=== PATIENT | male | born 1960 | race African-American/Black ===

== ENCOUNTER 2023-06-05 08:27 | Outpatient (REF) | payer MEDICAID, SELFPAY ==
[2023-06-05 15:19] LABS: Alanine Aminotransferase 18 U/L (0-40); Albumin Level 4.1 g/dL (3.5-5.0); Alkaline Phosphatase 57 U/L (39-117); Aspartate Amino Transferase 23 U/L (5-37); Bilirubin Direct 0.2 mg/dL (0.0-0.5); Bilirubin Total 0.5 mg/dL (0.0-1.0); Total Protein 7.5 g/dL (6.5-8.0)
== END 2023-06-05 08:28 | disposition home or self-care (01) ==
LOC: HO.CHCLDS 08:27
PROVIDERS: Visit Provider Student in an Organized Health Care Education/Training Program
DX: Z00.00 Encounter for general adult medical examination without abnormal findings (principal)
CPT/HCPCS: 36415; 80076

== ENCOUNTER 2024-01-14 08:36 | Outpatient (REF) | payer MEDICAID, SELFPAY ==
[2024-01-14 14:42] LABS: MANUAL DIFF FLAG NO
[2024-01-14 15:03] LABS: Basophils Percent Auto 0.6 % (0-2); Eosinophils Absolute Auto 0.2 X10*3/uL (0.0-0.4); Eosinophils Percent Auto 3.5 % (0-4); Hematocrit 43.5 % (42.0-52.0); Hemoglobin 14.4 g/dl (14.0-18.0); Imm Gran Abs Auto 0.02 X10*3/uL (0.00-0.03); Imm Gran Pct Auto 0.4 % (0.0-0.4); Lymphocytes Absolute Auto 2.1 X10*3/uL (1.2-4.9); Lymphocytes Percent Auto 38.3 % (20-40); Mean Corpuscular HGB Conc 33.1 g/dl (31.0-36.0); Mean Corpuscular Hemoglobin 29.1 pg (27.0-33.0); Mean Corpuscular Volume 87.9 fL (80.0-98.0); Mean Platelet Volume 10.4 fL (9.4-12.4); Monocytes Absolute Auto 0.5 X10*3/uL (0.1-1.2); Monocytes Percent Auto 8.3 % (2-11); Neutrophils Absolute Auto 2.7 x10*3/uL (2.0-8.3); Neutrophils Percent Auto 48.9 % (45-73); Platelet Count 260 X10*3/uL (160-400); Red Blood Count 4.95 X10*6/uL (4.60-5.80); Red Cell Distribution Width 12.5 % (11.0-16.0); White Blood Count 5.5 X10*3/uL (4.8-10.8)
[2024-01-14 15:28] LABS: Alanine Aminotransferase 23 U/L (0-40); Albumin Level 4.1 g/dL (3.5-5.0); Alkaline Phosphatase 53 U/L (39-117); Anion Gap 12 (12-20); Aspartate Amino Transferase 23 U/L (5-37); Bilirubin Total 0.6 mg/dL (0.0-1.0); Blood Urea Nitrogen 15 mg/dL (9-16); Calcium 9.5 mg/dL (8.4-10.2); Carbon Dioxide 25 mmol/L (22-29); Chloride 105 mmol/L (96-108); Cholesterol 190 mg/dL (<200); Estimated Glomerular Filt Rate > 60; Glucose Random 88 mg/dL (60-115); HDL Cholesterol 41 mg/dL (>40); LDL Cholesterol Calculated 134 mg/dL (<100); Potassium 4.4 mmol/L (3.3-5.1); Sodium 138 mmol/L (135-145); Total Protein 7.5 g/dL (6.5-8.0); Triglycerides 79 mg/dL (<150)
[2024-01-14 15:34] LABS: TSH reflex Free T4 1.36 uIU/mL (0.32-4.0)
[2024-01-15 08:53] LABS: HIV AB/AG Nonreactive (Nonreactive); HIV Num 1 0.06 S/CO (0.00-0.99)
== END 2024-01-14 08:37 | disposition home or self-care (01) ==
LOC: HO.CHCLDS 08:36
PROVIDERS: Visit Provider Internal Medicine
DX: Z11.4 Encounter for screening for human immunodeficiency virus [HIV] (principal); R03.0 Elevated blood-pressure reading, without diagnosis of hypertension
CPT/HCPCS: 36415; 80053; 80061; 84443; 85025; 87389

== ENCOUNTER 2024-06-22 10:08 | Outpatient (REF) | payer MEDICAID, SELFPAY ==
[2024-06-22 16:10] LABS: Anion Gap 12 (12-20); Blood Urea Nitrogen 15 mg/dL (9-16); Carbon Dioxide 25 mmol/L (22-29); Chloride 104 mmol/L (96-108); Estimated Glomerular Filt Rate > 60; Glucose Random 99 mg/dL (60-115); Potassium 4.2 mmol/L (3.3-5.1); Sodium 137 mmol/L (135-145)
[2024-06-22 16:57] LABS: PSA,Total (Free>4and<10) 1.28 ng/mL (0.00-4.00)
[2024-06-23 03:55] LABS: ~HepC Num1 0.13 S/CO (0.00-0.79); ~Hepatitis C Antibody Nonreactive (Nonreactive)
== END 2024-06-22 10:09 | disposition home or self-care (01) ==
LOC: HO.CHCLDS 10:08
PROVIDERS: Visit Provider Internal Medicine
DX: N43.3 Hydrocele, unspecified (principal); R03.0 Elevated blood-pressure reading, without diagnosis of hypertension; I10 Essential (primary) hypertension
CPT/HCPCS: 36415; 80048; 84153; 86803

== ENCOUNTER 2025-03-09 08:43 | Outpatient (REF) | payer SELFPAY ==
--- OUTSIDE RECORDS SUMMARY | 2025-03-09 09:03 | XMS_ITS | Clinical Summary ---
Author Organization [employer] Address [address] [place] [address] Care Team Providers Care Cardiopulmonary Technologist Chief Name Role Phone Gary Colunga MD Primary Care Provider Allergies No known active allergies Medications losartan (Cozaar) 50 MG tabletIndicatio ns:Elevated blood pressure reading TAKE 1 TABLET (50 MG) BY MOUTH ONCE PER DAY. 90 tablet 5 Active losartan (Cozaar) 50 MG tabletIndicatio ns:Elevated blood pressure reading Take 1 tablet (50 mg) by mouth Once per day. 90 tablet 1 4 03/02/20 25 Discontinued Active Problems Problem Noted Date Diagnosed Date Primary hypertension 06/22/2024 Elevated blood pressure reading 06/07/2023 Assessment & Plan (06/07/2023 9:53 AM EDT): Dx with HTN. Will start on losartan 50 mg every day. Target BP < 140/90 mmHg Recommended to keep monitoring blood pressure at home. Advised to bring home readings on paper upon next office visit. 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 Encounters Date Type Department Care Team Description 02/28/2025 Refill [facility] [address] [place] [address] Gary Colunga MD Elevated blood pressure reading 02/18/2025 2:00 PM EDT Office Visit [facility] [address] [place] [address] Gary Colunga MD Annual physical exam (Primary Dx); Hydrocele of testis; Primary hypertension; Dietary counseling; Exercise counseling; Overweight 02/18/2025 Travel 02/11/2025 Patient Outreach [facility] [address] [place] [address] Gary Colunga MD Pre-visit Planning (Pre visit planning LVM ) from Last 3 Months Immunizations Immunization Administration Dates Next Due Influenza Injectable Quadriv alant Preservative Free IIV4 MDCK 04/23/2023,05/25/2022 Influenza injectable quadrivalent preservative f ree 06/14/2021 Influenza, Injectable, MDCK, preservative free 1 Pfizer Covid-19 Vaccine 12+ 06/22/2024 Pneumococcal Conjugate PCV 20 09/03/2024 Tdap 03/11/2024 Family History Medical History Relation Name Comments Heart attack Father Relation Name Status Comments Father Social History Tobacco Use Types Packs/Day Years Used Date Smoking Tobacco: Some Days Cigarettes Smokeless Tobacco: Never Tobacco Cessation:Ready to Q uit: Not Asked; Counseling Given: Not Answered Comments:Chew tobacco Alcohol Use Standard Drinks/Week Comments Yes 2 (1 standard drink = 0.6 oz pur e alcohol) once or twice a month : Alcohol Answer Date Recorded Q1: How often do you have a drink containing alc ohol? 2 06/22/2024 Q2: How many drinks containi ng alcohol do you have on a typical day when you are drinking? 1 06/22/2024 Q3: How often do you have six or more drinks on one occasion? 1 06/22/2024 Depression Answer Date Recorded Patient Health Questionnaire-9 Score 1 06/22/2024 Patient Health Questionnaire-9 Score 1 06/22/2024 Last PHQ-9: Questionnaire Data Not on file 1 08/22/2023 Housing Stability Answer Date Recorded What is your housing situation today? I have selene hammond 02/18/[address] you li ve. Do you have problems with any of the following? None of the above 02/18/2025 Food Insecurity Answer Date Recorded Within the past 12 months, y ou worried that your food would run out before you got money to buy more: Never True 06/05/2023 Within the past 12 months,th e food you bought just didn't last and you didn't have enough money to get more: Never True Transportation Answer Date Recorded In the past 12 months, has l ack of transportation kept you from medical appts, meetings, work or from getting things needed for daily living? No 06/05/2023 Utilities Answer Date Recorded In the past 12 months, has t he electric, gas, oil or water company threatened to shut off services in your home? No 06/05/2023 Depression Answer Date Recorded Patient Health Questionnaire-2 Score 0 06/22/2024 Internet Access Answer Date Recorded Internet Access Q1 No 02/18/2025 Internet Access Q2 I do not want or need it 10/2024 Sex and Gender Information Value Date Recorded Sex Assigned at Male 06/18/2022 10:33 AM EDT Legal Sex Male 10:33 AM EDT Gender Identity Male 06/18/2022 10:33 AM EDT Sexual Orientation Straight 06/18/2022 10 :33 AM EDT Last Filed Vital Signs Vital Sign Reading Time Taken Comments Blood Pressure 135/79 02/18/2025 2:03 PM EDT Pulse 84 02/18/2025 2:03 PM EDT Temperature 36.6 C (97.9 F) 02/18/2025 2:03 PM EDT Respiratory Rate 18 02/18/2025 2:03 PM EDT Oxygen Saturation 97% 02/18/2025 2:03 PM EDT Inhaled Oxygen Concentration - - Weight 77.1 kg (170 lb) 02/18/2025 2:03 PM EDT Height 168.3 cm (5' 6.25 ) 02/18/2025 2:03 PM ED T Body Mass Index 27.23 02/18/2025 2:03 PM EDT Plan of Treatment Health Maintenance Due Date Last Done Comments CT Colonography 1960 Colonoscopy 1960 FIT 1960 FOBT 1960 Sigmoidoscopy 1960 Zoster Vaccines (1 of 2) 01/17/2010 COVID-19 Vaccine ( season) 2025 06/22/2024, 12/13/2020, 11/15/2020 Influenza Vaccine (#1) 2025 , 04/23/2023, 05/25/2022, Additional history exists Alcohol/Substance Use Screening 06/22/2025 06/22/2024 Depression Screening 06/22/2025 06/22/2024, 06/22/20 SDOH Screening 02/18/2026 02/18/2025 Tobacco Screening 02/18/2026 02/18/2025 Colorectal Cancer Screening 05/21/2026 FIT DNA/Cologuard 05/21/2026 05/21/2023 Lipid Panel 01/13/2029 01/14/2024, 0811/2020, 04/12/2020 DTaP/Tdap/Td Vaccines (2 - Td or Tdap) 03/11/2034 03/11/2024 RSV Patients and Patients Aged 60 years or older (1 - 1-dose 75+ series) 01/17/2035 Hepatitis C Screening Completed 06/22/2024 Pneumococcal Vaccine: 50+ Years Completed 09/03/2024 HIB Vaccines Aged Out No longer eligi ble based on patient's age to complete this topic HPV Vaccines Aged Out No longer eligi ble based on patient's age to complete this topic Hepatitis A Vaccines Aged Out No long er eligible based on patient's age to complete this topic Hepatitis B Vaccines Aged Out No long er eligible based on patient's age to complete this topic IPV Vaccines Aged Out No longer eligi ble based on patient's age to complete this topic Meningococcal B Vaccine Aged Out No l onger eligible based on patient's age to complete this topic Meningococcal Vaccine Aged Out No gisel hawk eligible based on patient's age to complete this topic RSV under 20 months Aged Out No longe r eligible based on patient's age to complete this topic Rotavirus Vaccines Aged Out No longer eligible based on patient's age to complete this topic Procedures Procedure Name Priority Date/Time Associated Diagnosis Comments HEPATITIS C AB W/REFL TO HCV RNA, QN, PCR Routine 06/22/2024 10:10 AM EST Hydrocele of testis LIPID PANEL, STANDARD Routine 01/14/2024 8:37 AM EDT Elevated blood pressure reading LAB COLOGUARD COLON CANCER SCREEN Routine 05/21/2023 8:00 AM EDT Encounter for screening colonoscopy from Last 3 Months or Most Recently Relevant to Health Maintenance Results * Hepatitis C Antibody with Reflex to HCV, RNA, Quantitative, Real-Time PCR (06/22/2024 10:10 AM EST) Hepatitis C Antibody Nonreactive Nonreactive [facility] Comment:Antibodies to HCV no t detected; does not exclude early acuteHCV infection. Blood Venous blood specimen / Unknown 06/22/2024 10:10 AM EST 06/22/2024 2:39 PM EST us Gary Colunga MD LAB BLOOD ORDERABLES Final Result [facility] [address] [place] [phone] * (ABNORMAL) Lipid Panel, Standard (01/14/2024 8:37 AM EDT) Triglycerides 79 <150 mg/dL [facility] Comment:Desirable Triglyceri de: less than 150 mg/dLBorderline High Triglyceride 150-199 mg/dLHigh Triglyceride: 200-499 mg/dLVery High Triglyceride: greater than or equal to 5OO mg/dL Cholesterol 190 <200 mg/dL [facility] Comment:Desirable Cholestero l: less than 200 mg/dLBorderline High Cholesterol: 200-239 mg/dLHigh Cholesterol: greater than 239 mg/dL LDL Cholesterol Calculated 134(H) <100 mg/dL [facility] Comment:Desirable LDL: less than 100 mg/dLNear Optimal/Above Optimal LDL: 110- 129 mg/dLBorderline High LDL: 130-159 mg/dLHigh LDL: 160-189 mg/dLVery High LDL: greater than or equal to 190 mg/dL HDL Cholesterol 41 >40 mg/dL [facility] Comment:Desirable HDL: great er than 40 mg/dL Note: This HDL assay may give artificially low results in patients with liver disease. Blood Venous blood specimen / Unknown 01/14/2024 8:37 AM EDT 01/14/2024 2:37 PM EDT us Gary Colunga MD LAB BLOOD ORDERABLES Final Result [facility] [address] [place] [phone] * Cologuard?? colon cancer screening (05/21/2023 8:00 AM EDT) Cologuard Result Negative Negative 05/31/20 5:10 AM EDT [facility] (CLIA #:[id number]) Comment: NEGATIVE TEST RESULT. A negative Cologuard result indicates a low likelihood that a colorectal cancer (CRC) or advanced adenoma (adenomatous polyps with more advanced pre-malignant features) is present. The chance that a person with a negative Cologuard test has a colorectal cancer is less than 1 in 1500 (negative predictive value >99.9%) or has an advanced adenoma is less than 5.3% (negative predictive value 94.7%). These data are based on a prospective cross-sectional study of 10,000 individuals at average risk for colorectal cancer who were screened with both Cologuard and colonoscopy. (Lauraialtravis T. et al, N Engl J Med 2014;370(14):7048-0951) The normal value (reference range) for this assay is negative. COLOGUARD RE-SCREENING RECOMMENDATION: Periodic colorectal cancer screening is an important part of preventive healthcare for asymptomatic individuals at average risk for colorectal cancer. Following a negative Cologuard result, the [place] [employer] and U.S. Multi-Society Task Force screening guidelines recommend a Cologuard re-screening interval of 3 years. References: [place] [employer] Guideline for Colorectal Cancer Screening: https://www.cancer.org/cancer/aaxrd-zwmlej-lajpdn/jgelxunra-sphevanjv-saaplfq/ac s-rec ommendations.html.; Magnus WILLS, Christiano DUNNE, Yee YADAV, Colorectal Cancer Screening: Recommendations for Physicians and Patients from the U.S. Multi-Society Task Force on Colorectal Cancer Screening , Am J Gastroenterology 2017; 112:2190-8737. TEST DESCRIPTION: Composite algorithmic analysis of stool DNA-biomarkers with hemoglobin immunoassay. Quantitative values of individual biomarkers are not reportable and are not associated with individual biomarker result reference ranges. Cologuard is intended for colorectal cancer screening of adults of either sex, 45 years or older, who are at average-risk for colorectal cancer (CRC). Cologuard has been approved for use by the U.S. FDA. The performance of Cologuard was established in a cross sectional study of average-risk adults aged 50-84. Cologuard performance in patients ages 45 to 49 years was estimated by sub-group analysis of near-age groups. Colonoscopies performed for a positive result may find as the most clinically significant lesion: colorectal cancer [4.0%], advanced adenoma (including sessile serrated polyps greater than or equal to 1cm diameter) [20%] or non- advanced adenoma [31%]; or no colorectal neoplasia [45%]. These estimates are derived from a prospective cross-sectional screening study of 10,000 individuals at average risk for colorectal cancer who were screened with both Cologuard and colonoscopy. (Everton Koo. et al, N Engl J Med 2014;370(14):9778-9534.) Cologuard may produce a false negative or false positive result (no colorectal cancer or precancerous polyp present at colonoscopy follow up). A negative Cologuard test result does not guarantee the absence of CRC or advanced adenoma (pre-cancer). The current Cologuard screening interval is every 3 years. ([place] [employer] and U.S. Multi-Society Task Force). Cologuard performance data in a 10,000 patient pivotal study using colonoscopy as the reference method can be accessed at the following location: www.[facility]/results. Additional description of the Cologuard test process, warnings and precautions can be found at www.[facility].com. Stool specimen (specimen) 05/21/2023 8:00 AM EDT 05/24/2023 3:55 PM EDT us Gary Colunga MD LAB MOLECULAR DIAGNOSTICS O RDERABLES Final Result [facility] (CLIA #:[id number]) [address] [place] [place] [address], from Last 3 Months or Most Recently Relevant to Health Maintenance Insurance [facility] [address] [place] [phone] Care Teams Cardiopulmonary Technologist Chief Relationship Specialty Start Date End Date Gary Colunga MD [address] [place] [phone] PCP - General Internal Medicine 12/24/17
== END 2025-03-09 08:44 | disposition home or self-care (01) ==
LOC: CF 08:43
PROVIDERS: PCP Internal Medicine; Visit Provider Internal Medicine
DX: Z13.89 Encounter for screening for other disorder (principal)